=== PATIENT | male | born 1985 | race Caucasian/White ===

== ENCOUNTER → 2024-12-18 | Outpatient (REF) | payer OTHER | LOC: M SMT 13:14 | PROVIDERS: ATTEND Urology | DX: Z30.2 Encounter for sterilization (principal) ==

== ENCOUNTER → 2025-01-16 | Outpatient (REF) | payer OTHER ==
[2025-01-16 10:20] LABS: SEMEN APPEARANCE OPAQUE (OPAQUE); SEMEN VISCOSITY LIQUID (LIQUID); SEMEN VOLUME 5.1 ml (2.0-5.0)
[2025-01-16 10:27] LABS: WBC CONCENTRATION >1 M/ml (<=1 M/ml)
== END ==
LOC: M LAB REF 10:15
PROVIDERS: ATTEND Urology
DX: Z30.2 Encounter for sterilization (principal)